=== PATIENT | female | born 1995 | race Caucasian/White ===

== ENCOUNTER 2021-06-13 22:12 | Emergency (ER) | payer OTHER ==
[2021-06-13] MEDS ORDERED: KETOROLAC 30 MG/ML VIAL IM STA (23:24)
--- NOTE | 2021-06-13 23:45 | ED Physician Documentation ---
PD HPI CHEST PAIN - Stated complaint Stated Complaint: CHEST PX/SOA/N - Chief complaint Chief Complaint: Cardiac - History obtained from History obtained from: Patient - Additional information Additional information: 26-year-old woman with past medical history of mild intermittent asthma, anxiety, non-smoker, presents with chest pain sudden onset at 9 PM while laughing radiating to the right arm, stabbing, lasting about 15 to 20 minutes, worse with laughing. Patient first thought she pulled a muscle because she had been laughing really hard but then the pain worsened and was constant, would not go away. She began crying while lying on the floor decided to come to the emergency department. Of note, patient used her albuterol metered-dose inhaler once earlier today and has been experiencing sore throat and cough earlier this week. She did have a Covid test that was negative and received both Materna vaccines in November. 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 Denies fever, pleurisy, shortness of breath at present.No chest pain except when taking a really deep breaths. Denies recent surgery, bedrest, recent travel, history of DVT or PE, control or hormones. Review of Systems Ten Systems: 10 systems reviewed and negative Constitutional: denies: Fever, Chills Throat: reports: Sore throat Cardiac: reports: Chest pain / pressure Respiratory: reports: Cough. 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 : None HEENT: None Psych: Depression, Anxiety Musculoskeletal: None Derm: None - Past Surgical History Past Surgical History: No - Present Medications Home Medications: Ambulatory Orders Medication Instructions Recorded Confirmed Escitalopram [Lexapro] 10 mg PO DAILY 06/13/21 06/13/21 busPIRone [Buspar] 5 mg PO DAILY 06/13/21 06/13/21 - Allergies Allergies/Adverse Reactions: Allergies Allergy/AdvReac Type Severity Reaction Status Date / Time No Known Drug Allergies Allergy Verified 06/13/21 22:34 - Social History Does the pt smoke?: No Smoking Status: Never smoker - Immunizations Immunizations are current?: Yes - POLST Patient has POLST: No PD ED PE NORMAL - Vitals Vital signs reviewed: Yes - General General: Alert and oriented X 3, No acute distress, Well developed/nourished - HEENT HEENT: Atraumatic, PERRL, EOMI, Moist mucous membranes, Pharynx benign - Neck Neck: Supple, no meningeal sign - Cardiac Cardiac: RRR - Respiratory Respiratory: No respiratory distress, Clear bilaterally - Abdomen Abdomen: Non tender, Non distended - Derm Derm: Normal color, Warm and dry - Extremities Extremities: No edema - Neuro Neuro: Alert and oriented X 3 - Psych Psych: Normal mood, Normal affect Results - Vitals Vitals: Vital Signs - 24 hr 06/13/21 06/13/21 22:21 22:56 Temperature 36.8 C Heart Rate 99 Respiratory 24 Rate Blood Pressure 142/105 H 132/87 H O2 Saturation 98 Oxygen O2 Source Room air - EKG (time done) 2221 Rate: Rate (enter#) (111) Rhythm: Sinus tachycardia [place]: Normal Intervals: Normal [place] QRS: Normal Ischemia: Other (borderline STD vs artifact, most prominent in v5) 2335 Rate: Rate (enter#) (68) Rhythm: NSR [place]: Normal Intervals: Normal [place] QRS: Normal Ischemia: Normal ST segments Compare to prior EKG: Other (better quality ekg from prior done an hour ago. normal ekg) PD MEDICAL DECISION MAKING - ED course ED course: 26-year-old woman presents with low risk chest pain. Initial EKG with artifact, and repeat EKG is normal. Chest x-ray noncontributory and physical exam is benign. I discussed with patient reasons for emergent return and she will follow up with her primary doctor. Departure - Departure Clinical Impression: Chest pain Condition: Good Instructions: ED Chest Pain NonCardiac Comments: You were seen in the emergency department for chest pain. Your EKGs and chest x-ray did not show any emergent findings. Your physical exam was normal. You should follow-up with your primary doctor this week. Return to the emergency department you have any new or worsening symptoms or other concerns.
--- NOTE | 2021-06-14 01:00 | XRAY Report ---
PROCEDURE: Chest 2 View X-Ray INDICATIONS: chest pain sudden onset this evening TECHNIQUE: 2 view(s) of the chest. COMPARISON: None. FINDINGS: Surgical changes and devices: None. Lungs and pleura: No pleural effusions or pneumothorax. Lungs are clear. Mediastinum: Mediastinal contours are normal. Heart size is normal. Bones and chest wall: No suspicious bony abnormalities. Soft tissues appear unremarkable. IMPRESSION: Normal chest x-ray Reviewed by: Fadi Clayton MD on 06/13/2021 11:59 PM DUN[facility] Approved by: Fadi Clayton MD on 06/13/2021 11:59 PM DUNIA Station ID: [id number]
[2021-06-14 01:16] VITALS: BP 118/62
== END 2021-06-14 01:30 | disposition home or self-care (01) ==
LOC: ED 22:12
DX: R07.9 Chest pain, unspecified (principal); R00.0 Tachycardia, unspecified; J45.20 Mild intermittent asthma, uncomplicated
CPT/HCPCS: 93005; 96372; 99282; 99284

== ENCOUNTER 2022-01-29 16:29 | Emergency (ER) | payer OTHER ==
--- NOTE | 2022-01-29 18:30 | ED Physician Documentation ---
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 Dazed but no LOC. She has vague memory of going and sitting down. Feels still off balance and slow speaking.) Where head injury occurred: Work Timing - onset: How many minutes ago (30), Today Location of injury: Top Quality of pain: Pain, Aching Associated symptoms: AMS, Amnesia (for several minutes). No: LOC, Nausea / vomiting, Neck pain, Paresthesias Symptoms worsen with: Palpation Similar symptoms before: Has not had sx before Recently seen: Not recently seen Review of Systems Constitutional: denies: Fever, Chills Nose: denies: Rhinorrhea / runny nose, Congestion Throat: denies: Sore throat Respiratory: denies: Cough GI: reports: Nausea. 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 : None HEENT: None Psych: Depression, Anxiety Musculoskeletal: None Derm: None - Past Surgical History Past Surgical History: No - Present Medications Home Medications: Ambulatory Orders Medication Instructions Recorded Confirmed Escitalopram [Lexapro] 10 mg PO DAILY 06/13/21 06/13/21 busPIRone [Buspar] 5 mg PO DAILY 06/13/21 06/13/21 - Allergies Allergies/Adverse Reactions: Allergies Allergy/AdvReac Type Severity Reaction Status Date / Time No Known Drug Allergies Allergy Verified 01/29/22 16:33 - Social History Does the pt smoke?: No Smoking Status: Never smoker - Immunizations Immunizations are current?: Yes - POLST Patient has POLST: No PD ED PE NORMAL - Vitals Vital signs reviewed: Yes - General General: Alert and oriented X 3, No acute distress, Well developed/nourished - HEENT HEENT: PERRL, EOMI, Other (focal swelling and tenderness top of head. No laceration. 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 ) Eye Opening: Spontaneous Motor: Obeys Commands Verbal: Oriented GCS Score: 15 Results - Vitals Vitals: Vital Signs - 24 hr 01/29/22 01/29/22 16:33 19:23 Temperature 36.5 C 36.7 C Heart Rate 72 74 Respiratory 16 14 Rate Blood Pressure 122/81 H 113/64 O2 Saturation 100 99 Oxygen O2 Source Room air PD MEDICAL DECISION MAKING - ED course Complexity details: considered differential (sounds like concussive symptoms. Normal neuro. SHared decision to not do imaging at this time. ), d/w patient Departure - Departure Disposition: 01 Home, Self Care Clinical Impression: Concussion Qualifiers: Encounter type: initial encounter Loss of consciousness presence/duration: without LOC Qualified Code(s): S06.0X0A - Concussion without loss of consciousness, initial encounter Head contusion Qualifiers: Encounter type: initial encounter Contusion of head detail: scalp Qualified Code(s): S00.03XA - Contusion of scalp, initial encounter Condition: Stable Record reviewed to determine appropriate education?: Yes Instructions: ED Concussion Follow-Up: MICHAEL ISABEL [Primary Care Provider] - Comments: Your symptoms do sound like a mild concussion. Off work for 2 to 3 days to allow for light activity. No vigorous activity and no vigorous cognitive activity (video games or fast activity movies etc.) Tylenol and/or ibuprofen if needed for headache or pains. You can expect some headache and slow processing cognitively and a bit off balance and and coordinate for likely 2 or 3 days. Sometimes it can be even several weeks before symptoms resolve so we will have to see how you feel. Light activity is okay. Regular diet. Follow-up with your primary care if not improved over the next 3 to 4 days. Return to the ER if notably worsening symptoms. A good information site can be the [facility] website that has a section called "heads up" regarding information on concussion and back to normal activity in a graded fashion. Forms: Activity restrictions Discharge Date/Time: 01/29/22 19:23
[2022-01-29] MEDS ORDERED: ACETAMINOPHEN 325 MG TABLET PO STA (18:53)
[2022-01-29 19:25] VITALS: BP 113/64
== END 2022-01-29 19:23 | disposition home or self-care (01) ==
LOC: ED 16:29
DX: S06.0X0A Concussion without loss of consciousness, initial encounter (principal); S00.03XA Contusion of scalp, initial encounter; W30.89XA Contact with other specified agricultural machinery, initial encounter; Y99.0 Civilian activity done for income or pay
CPT/HCPCS: 99282; A9270